=== PATIENT | male | born 1995 | race African-American/Black ===

== ENCOUNTER 2022-08-15 20:30 | Emergency (ER) | payer MEDICAID ==
[~2022-08-15] VITALS: Ht 180.3 cm; Wt 80.0 kg
[2022-08-15 20:34] VITALS: BP 138/70
[2022-08-15] MEDS ORDERED: TETANUS AND DIPHTHERIA TOX/PF 0.5ML SYR (ADULT) IM ONE (23:00)
[2022-08-15] MEDS ORDERED: TETANUS, DIPHTHERIA, PERTUSSIS VAC/PF 0.5ML (>10YR OLD) IM ONE (23:30)
== END 2022-08-15 23:15 | disposition home or self-care (01) ==
LOC: ER 21:09
DX: S01.111A Laceration without foreign body of right eyelid and periocular area, initial encounter (principal); X58.XXXA Exposure to other specified factors, initial encounter; Y93.9 Activity, unspecified; Y92.9 Unspecified place or not applicable; Z23 Encounter for immunization; Z71.85 Encounter for immunization safety counseling
CPT/HCPCS: 90714; 90715; 99281